=== PATIENT | male | born 1965 | race Caucasian/White ===

== ENCOUNTER 2018-10-03 10:04 | Emergency (ER) | payer BC ==
[2018-10-03 12:21] LABS: Bacteria/HPF Rare-Few HPF (None Seen); Bilirubin Negative (Negative); Blood, Urine Trace (Negative); Clarity Clear (Clear); Glucose, Urine (Dipstick) 100 mg/dL (Negative); Leukocyte Negative (Negative); Nitrite Negative (Negative); Protein, Urine (Dipstick) Negative (Neg-Trace); RBC/HPF 0-3 HPF (0-3); Specific Gravity, Urine 1.015 (1.005-1.030); Squamous Epithelial 0-3 HPF (0-3); Urobilinogen 0.2 mg/dL (0.2-1.0); WBC/HPF 0-3 HPF (0-3); pH, Urine 5.5 (5.0-9.0)
--- NOTE | 2018-10-03 13:25 | CT ---
CT ABDOMEN AND PELVIS WITHOUT CONTRAST: Date: 10/03/18 HISTORY: Intermittent abdominal pain. COMPARISON: None. FINDINGS: The lung bases are clear. No pericardial effusion. Diffuse hepatic steatosis. There is mild left-sided hydroureteronephrosis and subtle asymmetric left-sided perinephric stranding . Mild dilatation of left ureter. Inside the urinary bladder is a 2.0 mm calculus. This has passed be yond the ureterovesical junction. There is a 2.0 mm calculus to the inferior pole of left renal colle cting system, as well as a 1.0 mm calculus intrapolar left renal collecting system. No right-sided hy droureteronephrosis or nephroureterolithiasis. There is a fat-containing supraumbilical hernia with some mild congestion of the mesenteric vessels/o mentum. Small, fat-containing umbilical hernia. Diffuse hepatic steatosis. The spleen and gallbladder are unremarkable. Mild atrophy of the pancreas. No retroperitoneal adenopathy. Mild diverticular disease of the sigmoid colon without active current inflammation. There is submucosal fatty infiltration of the distal ileum and terminal ileum, as well as of the cecu m and ascending colon. The appendix is visualized and is normal. IMPRESSION: 1. 2.0 mm calculus within the urinary bladder has passed from the left renal collecting system given the left mild hydroureteronephrosis and mild asymmetric left-sided renal stranding. No ureteral calc ulus remains. 2. Small calculi within the left inferior and intrapolar renal collecting system. No right-sided hyd roureteronephrosis or nephroureterolithiasis. 3. Diffuse hepatic steatosis. 4. Submucosal fatty infiltration as described of the distal ileum and terminal ileum, as well as of the cecum and ascending colon, can be seen with chronic inflammatory bowel disease. 5. Mild congestion of the omental vessels through a supraumbilical hernia with a 2.5 cm hiatus. 6. Small, fat-containing umbilical hernia. 7. Moderate diverticular disease sigmoid colon without active current inflammation. POS: CET
== END 2018-10-03 12:02 | disposition home or self-care (01) ==
LOC: NAV ERS 10:04
DX: N13.2 Hydronephrosis with renal and ureteral calculous obstruction (principal); M10.9 Gout, unspecified; E78.5 Hyperlipidemia, unspecified; E11.9 Type 2 diabetes mellitus without complications; I10 Essential (primary) hypertension; Z79.899 Other long term (current) drug therapy
CPT/HCPCS: 74176; 81003; 81015